=== PATIENT | female | born 2000 | race Caucasian/White ===

== ENCOUNTER 2023-04-20 14:28 | Emergency (ER) | payer MEDICAID ==
[~2023-04-20] VITALS: Ht 162.6 cm; Wt 49.3 kg
[2023-04-20 14:45] VITALS: BP 130/80; PULSE 122; RESP 16; O2SAT 99
[2023-04-20 18:40] LABS: Urine Bacteria FEW /hpf (None Seen); Urine Blood Negative /uL (Negative); Urine Clarity Clear (Clear); Urine Color Colorless (Yellow); Urine Protein, UAD Negative (Negative); Urine Urobilinogen Normal (Negative); Urine WBC 10 /hpf (0 - 5)
[2023-04-22 15:06] LABS: Chlamydia Trachomatis, NAA Positive (Negative); Neisseria gonorrhoeae, NAA Negative (Negative)
== END 2023-04-20 22:46 | disposition left against medical advice (07) ==
LOC: ER 14:28
DX: T74.21XA Adult sexual abuse, confirmed, initial encounter (principal); Y93.89 Activity, other specified; Y92.89 Other specified places as the place of occurrence of the external cause; Y99.8 Other external cause status
CPT/HCPCS: 81001